=== PATIENT | female | born 1945 | race Caucasian/White ===

== ENCOUNTER 2017-11-21 22:01 | Emergency (ER) | payer MEDICARE ==
[~2017-11-21] VITALS: Ht 165.1 cm; Wt 96.2 kg
[2017-11-21 22:42] LABS: BASO # 0.1 x10^3/uL (0.0-0.2); BASO % 2 % (0-3); EOS # 0.1 x10^3/uL (0.0-0.7); EOS % 1 % (0-3); HEMATOCRIT 49.3 % (36.0-47.0); LYMPH # 2.9 x10^3/uL (1.0-4.8); LYMPH % 30 % (24-48); MEAN CORPUSCULAR HEMOGLOBIN 33 pg (25-35); MEAN CORPUSCULAR HGB CONC 34 g/dL (31-37); MEAN CORPUSCULAR VOLUME 95 fL (79-100); MONO # 0.8 x10^3/uL (0.0-1.1); MONO % 8 % (0-9); NEUT # 5.8 x10^3uL (1.8-7.7); NEUT % 60 % (31-73); PLATELET COUNT 260 x10^3/uL (140-400); RED BLOOD COUNT 5.19 x10^6/uL (3.50-5.40); RED CELL DISTRIBUTION WIDTH 13.9 % (11.5-14.5); WHITE BLOOD COUNT 9.7 x10^3/uL (4.0-11.0)
[2017-11-21] MEDS ORDERED: PROCHLORPERAZINE 10 MG/2 ML VIAL. IV ONE (22:45)
[2017-11-21] MEDS ORDERED: IV NORMAL SALINE 1,000ML 1,000 ML IV SCH (22:45)
--- NOTE | 2017-11-21 22:48 | EKG ---
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
[2017-11-21 23:04] LABS: ALBUMIN 3.5 g/dL (3.4-5.0); CALCIUM 8.8 mg/dL (8.5-10.1); CREATININE 0.9 mg/dL (0.6-1.0); GFR 61.9; TOTAL BILIRUBIN 0.4 mg/dL (0.2-1.0); TOTAL PROTEIN 7.1 g/dL (6.4-8.2)
[2017-11-21 23:05] LABS: POTASSIUM 4.3 mmol/L (3.5-5.1)
--- NOTE | 2017-11-21 23:10 | RAD ---
EXAM: Two view abdomen with one view chest HISTORY: Abdominal and left flank pain. COMPARISON: May 16, 2012. FINDINGS: A frontal view of the chest and supine/upright views of the abdomen are obtained. Hyperinflation suggests chronic obstructive pulmonary disease. There are no confluent infiltrates. There is no pneumothorax or pleural effusion. The heart is mildly enlarged. A retrocardiac opacity indicates a moderate to large hiatal hernia. There is no pneumoperitoneum. There are no distended small bowel loops or significant air-fluid levels. There is gas distally. Cholecystectomy clips are noted. There are moderate degenerative changes of the lumbar spine with a mild dextroscoliosis. There are no clear renal or ureteral calculi by radiographs. IMPRESSION: 1. Hyperinflation suggests chronic obstructive pulmonary disease. No confluent infiltrates. 2. Mild cardiomegaly. 3. Moderate to large hiatal hernia. 4. No evidence of obstruction. Electronically signed by: Madalyn Bucio MD (11/21/2017 11:06 PM) [facility]
--- NOTE | 2017-11-21 23:16 | PHYS DOC ---
Past History Past Medical History: Asthma, Diverticulitis Past Surgical History: Appendectomy, Cholecystectomy Alcohol Use: None Drug Use: None Adult General Chief Complaint Chief Complaint: FLANK PAIN HPI HPI Patient is a 71 year old female who presents with complaint of left-sided abdominal pain. Patient states she started having pain yesterday but states that it got much more severe this evening. The patient states she is not quite had pain in the similar though she does state that she had a bout of diverticulitis in became very sick from that requiring hospitalization at [facility] for treatment. The patient currently rates her pain as 10 out of 10 and states that the pain is most severe in the left upper quadrant and radiates towards the left side of her back. The patient has had associated nausea. Denies fever, diarrhea or constipation. Patient has not taken any medication for her symptoms. Patient states pain worsens with movement. Review of Systems Review of Systems Constitutional: Denies fever or chills [] Eyes: Denies change in visual acuity, redness, or eye pain [] HENT: Denies nasal congestion or sore throat [] Respiratory: Denies cough or shortness of breath [] Cardiovascular: Denies chest pain or edema[] GI: Abdominal pain, nausea, denies vomiting, bloody stools or diarrhea [] : Denies dysuria or hematuria [] Musculoskeletal: Denies back pain or joint pain [] Integument: Denies rash or skin lesions [] Neurologic: Denies headache, focal weakness or sensory changes [] All other systems were reviewed and found to be within normal limits, except as documented in this note. Current Medications Current Medications Current Medications Medications (Trade) Dose Ordered Sig/Janett Start Time Stop Time Status Last Admin Dose Admin Fentanyl Citrate (Fentanyl 2ml Vial) 50 mcg PRN Q15MIN PRN 11/21/17 22:45 11/22/17 22:44 Prochlorperazine Edisylate (Compazine) 5 mg 1X ONCE 11/21/17 22:45 11/21/17 22:46 DC Sodium Chloride 1,000 ml @ 1,000 mls/hr Q1H 11/21/17 22:45 11/21/17 23:44 Allergies Allergies Allergies Coded Allergies Type Severity Reaction Last Updated Verified propoxyphene Allergy Severe Unknown 11/21/17 Yes Penicillins Allergy Intermediate Unknown 11/21/17 Yes codeine Allergy Intermediate 11/21/17 Yes tetanus and diphtheria toxoids Allergy Intermediate Unknown 11/21/17 Yes Uncoded Allergies Type Severity Reaction Last Updated Verified TB TESTING Allergy Intermediate Unknown 11/21/17 Physical Exam Physical Exam Constitutional: Alert, afebrile, appears in moderate to severe discomfort. [] HENT: Normocephalic, atraumatic, bilateral external ears normal, oropharynx moist, no oral exudates, nose normal. [] Eyes: PERRLA, EOMI, conjunctiva normal, no discharge. [] Neck: Normal range of motion, no tenderness, supple, no stridor. [] Cardiovascular:Heart rate regular rhythm, no murmur [] Lungs & Thorax: Mild moderately restricted air movement bilaterally, rhonchi bilaterally, no chest wall tenderness[] Abdomen: Bowel sounds normal, soft, epigastric and left upper quadrant tenderness to palpation with guarding, no rebound tenderness, no masses, no pulsatile masses. [] Skin: Warm, dry, no erythema, no rash. [] Back: No tenderness, no CVA tenderness. [] Extremities: No tenderness, no cyanosis, no clubbing, ROM intact, no edema. [] Neurologic: Alert and oriented X 3, normal motor function, normal sensory function, no focal deficits noted. [] Current Patient Data Vital Signs Vital Signs Date Time Temp Pulse Resp B/P (MAP) Pulse Ox O2 Delivery O2 Flow Rate FiO2 11/21/17 22:01 98.1 65 18 95 Room Air Lab Results Laboratory Tests Test 11/21/17 22:28 White Blood Count 9.7 x10^3/uL (4.0-11.0) Red Blood Count 5.19 x10^6/uL (3.50-5.40) Hemoglobin 17.0 g/dL (12.0-15.5) H Hematocrit 49.3 % (36.0-47.0) H Mean Corpuscular Volume 95 fL (79-100) Mean Corpuscular Hemoglobin 33 pg (25-35) Mean Corpuscular Hemoglobin Concent 34 g/dL (31-37) Red Cell Distribution Width 13.9 % (11.5-14.5) Platelet Count 260 x10^3/uL (140-400) Neutrophils (%) (Auto) 60 % (31-73) Lymphocytes (%) (Auto) 30 % (24-48) Monocytes (%) (Auto) 8 % (0-9) Eosinophils (%) (Auto) 1 % (0-3) Basophils (%) (Auto) 2 % (0-3) Neutrophils # (Auto) 5.8 x10^3uL (1.8-7.7) Lymphocytes # (Auto) 2.9 x10^3/uL (1.0-4.8) Monocytes # (Auto) 0.8 x10^3/uL (0.0-1.1) Eosinophils # (Auto) 0.1 x10^3/uL (0.0-0.7) Basophils # (Auto) 0.1 x10^3/uL (0.0-0.2) Sodium Level 138 mmol/L (136-145) Potassium Level 4.3 mmol/L (3.5-5.1) Chloride Level 99 mmol/L (98-107) Carbon Dioxide Level 31 mmol/L (21-32) Anion Gap 8 (6-14) Blood Urea Nitrogen 9 mg/dL (7-20) Creatinine 0.9 mg/dL (0.6-1.0) Estimated GFR (Cockcroft-Gault) 61.9 BUN/Creatinine Ratio 10 (6-20) Glucose Level 124 mg/dL (70-99) H Calcium Level 8.8 mg/dL (8.5-10.1) Total Bilirubin 0.4 mg/dL (0.2-1.0) Aspartate Amino Transferase (AST) 18 U/L (15-37) Alanine Aminotransferase (ALT) 21 U/L (14-59) Alkaline Phosphatase 105 U/L (46-116) Creatine Kinase 51 U/L (26-192) Creatine Kinase MB (Mass) 0.7 ng/mL (0.0-3.6) Creatine Kinase MB Relative Index 1.4 % (0-4) Troponin I Quantitative < 0.017 ng/mL (0-0.055) Total Protein 7.1 g/dL (6.4-8.2) Albumin 3.5 g/dL (3.4-5.0) Albumin/Globulin Ratio 1.0 (1.0-1.7) Lipase 70 U/L (73-393) L EKG EKG Interpreted by me: Heart rate 88, sinus rhythm, left bundle branch block, no acute ST/T-wave abnormalities present[] Radiology/Procedures Radiology/Procedures [address] [address] IMAGING REPORT Signed PATIENT: AINSLEY VELASCO ACCOUNT: [id number] : 1945 LOCATION: ER AGE: 71 SEX: F EXAM STATUS: REG ER ORD. PHYSICIAN: MALI SMITH MD REASON: abdominal pain PROCEDURE: ACUTE ABDOMEN SERIES EXAM: Two view abdomen with one view chest HISTORY: Abdominal and left flank pain. COMPARISON: May 16, 2012. FINDINGS: A frontal view of the chest and supine/upright views of the abdomen are obtained. Hyperinflation suggests chronic obstructive pulmonary disease. There are no confluent infiltrates. There is no pneumothorax or pleural effusion. The heart is mildly enlarged. A retrocardiac opacity indicates a moderate to large hiatal hernia. There is no pneumoperitoneum. There are no distended small bowel loops or significant air-fluid levels. There is gas distally. Cholecystectomy clips are noted. There are moderate degenerative changes of the lumbar spine with a mild dextroscoliosis. There are no clear renal or ureteral calculi by radiographs. IMPRESSION: 1. Hyperinflation suggests chronic obstructive pulmonary disease. No confluent infiltrates. 2. Mild cardiomegaly. 3. Moderate to large hiatal hernia. 4. No evidence of obstruction. Electronically signed by: Madalyn Bucio MD (11/21/2017 11:06 PM) [facility] DICTATED AND SIGNED BY: HOWARD BUCIO MD DATE: 11/21/172303 CC: CHARLOTTE ZAMORA MD; MALI SMITH MD ~ [address] [address] IMAGING REPORT Signed PATIENT: AINSLEY VELASCO ACCOUNT: [id number] : 1945 LOCATION: ER AGE: 71 SEX: F EXAM STATUS: REG ER ORD. PHYSICIAN: MALI SMITH MD REASON: abdominal pain PROCEDURE: CT ABD PELV W/ IV CONTRST ONLY Indication:Abdominal pain, left flank pain radiating to back. Onset yesterday. Hx cholecystectomy, partial hysterectomy, hiatal hernia. Pt states she thinks they took out her appendix with her gallbladder. Pt denies injury to abdomen TECHNIQUE: CT abdomen and pelvis with IV contrast with multiplanar reformats. COMPARISON: 07/31/2012 FINDINGS: Heart is normal in size. No pericardial or pleural effusion. Visualized lung bases are clear. Small sliding hiatal hernia. 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 Status post cholecystectomy. Spleen is unenlarged. Adrenal glands demonstrate no nodularity. No nephrolithiasis or hydronephrosis. No retroperitoneal or pelvic adenopathy. Mild diffuse atherosclerotic ossification of the infrarenal aorta. Appendix is not visualized. No bowel obstruction. Diffuse colonic diverticulosis. No enlarged pelvic or retroperitoneal adenopathy. Urinary bladder is within normal limits. Uterus is surgically absent. No solid adnexal lesions. Bilateral ovaries are visualized. No suspicious bony lesion. IMPRESSION: 1. No acute findings to explain patient's symptoms. 2. Diffuse colonic diverticulosis without diverticulitis. Electronically signed by: Dimitry Gibbs DO (11/22/2017 12:10 AM) [facility] DICTATED AND SIGNED BY: DIMITRY GIBBS DO DATE: 11/22/17 0004 CC: CHARLOTTE ZAMORA MD; MALI SMITH MD ~ [] Course & Med Decision Making Course & Med Decision Making Pertinent Labs and Imaging studies reviewed. (See chart for details) Patient was given IV fentanyl, Compazine, GI cocktail, and IV fluids. Lab work and radiographic imaging showed no conclusive evidence for acute pathology relating to the patient's symptoms. On reexamination, the patient states that her pain has improved and she is feeling better at this time. Patient states that she would be comfortable going home at this time and will pursue outpatient follow-up with her primary doctor in the next 1-2 days for reevaluation. I advised the patient return to emergency department for any worsening symptoms. Patient was understanding and agreement with treatment plan. Dragon Disclaimer Dragon Disclaimer This electronic medical record was generated, in whole or in part, using a voice recognition dictation system. Departure Departure: Impression: Primary Impression: Abdominal pain Disposition: HOME, SELF-CARE Condition: IMPROVED Referrals: CHARLOTTE ZAMORA MD (PCP) Patient Instructions: Abdominal Pain Additional Instructions: Follow-up with your primary doctor in the next 1-2 days for reevaluation. Return to the emergency department for any worsening symptoms. Scripts Hydrocodone Bit/Acetaminophen (NORCO 5-325 TABLET) 1 Each Tablet 1-2 TAB PO Q4-6HRS, #20 TAB Prov: MALI SMITH MD 11/22/17 Famotidine (PEPCID) 20 Mg Tablet 1 TAB PO BID, #30 TAB 0 Refills Prov: MALI SMITH MD 11/22/17 Problem Qualifiers Primary Impression: Abdominal pain Abdominal location: left upper quadrant Qualified Codes: R10.12 - Left upper quadrant pain MALI SMITH MD Nov 21, 2017 23:16
[2017-11-21] MEDS ORDERED: IOHEXOL 300 MG/ML 75 ML VIAL. IV ONE (23:45)
[2017-11-21] MEDS ORDERED: CONTRAST GIVEN MC PRN (23:45)
[2017-11-21 23:52] LABS: BACTERIA,URINE 0 /HPF (0-FEW); BILIRUBIN,URINE NEG (NEG); CLARITY,URINE CLEAR; COLOR,URINE YELLOW; GLUCOSE,URINE NEG (NEG); NITRITE,URINE NEG (NEG); RBC,URINE 0 /HPF (0-2); SQUAMOUS EPITHELIAL CELL,UR FEW /LPF; UROBILINOGEN,URINE 0.2 mg/dL (0.2 mg/dL)
--- NOTE | 2017-11-22 00:14 | RAD ---
Indication:Abdominal pain, left flank pain radiating to back. Onset yesterday. Hx cholecystectomy, partial hysterectomy, hiatal hernia. Pt states she thinks they took out her appendix with her gallbladder. Pt denies injury to abdomen TECHNIQUE: CT abdomen and pelvis with IV contrast with multiplanar reformats. COMPARISON: 07/31/2012 FINDINGS: Heart is normal in size. No pericardial or pleural effusion. Visualized lung bases are clear. Small sliding hiatal hernia. 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 Status post cholecystectomy. Spleen is unenlarged. Adrenal glands demonstrate no nodularity. No nephrolithiasis or hydronephrosis. No retroperitoneal or pelvic adenopathy. Mild diffuse atherosclerotic ossification of the infrarenal aorta. Appendix is not visualized. No bowel obstruction. Diffuse colonic diverticulosis. No enlarged pelvic or retroperitoneal adenopathy. Urinary bladder is within normal limits. Uterus is surgically absent. No solid adnexal lesions. Bilateral ovaries are visualized. No suspicious bony lesion. IMPRESSION: 1. No acute findings to explain patient's symptoms. 2. Diffuse colonic diverticulosis without diverticulitis. Electronically signed by: Dimitry Gibbs DO (11/22/2017 12:10 AM) [facility]
[2017-11-22] MEDS ORDERED: IPRATRPIUM/ALBUTEROL 0.5/2.5MG 3 ML NEBU. NEB ONE (00:15)
[2017-11-22] MEDS ORDERED: LIDO:MAALOX 1:1 20 ML SINGLE DOSE. PO ONE (00:30)
[2017-11-22] MEDS ORDERED: HYDR-971 PO (00:55)
[2017-11-22] MEDS ORDERED: FAMO-63 PO (00:55)
[2017-11-22 01:25] VITALS: BP 152/80
[2017-11-22] MEDS ORDERED: HYDROcodone/APAP 7.5/325MG 1 TAB TABLET PO ONE (01:30)
== END 2017-11-22 01:25 | disposition home or self-care (01) ==
LOC: ER 22:01
DX: R10.12 Left upper quadrant pain (principal); R10.13 Epigastric pain; R11.0 Nausea; J45.909 Unspecified asthma, uncomplicated; Z90.49 Acquired absence of other specified parts of digestive tract; Z88.5 Allergy status to narcotic agent; Z88.7 Allergy status to serum and vaccine; Z88.0 Allergy status to penicillin; Z88.8 Allergy status to other drugs, medicaments and biological substances
CPT/HCPCS: 36415; 74022; 74177; 80053; 81001; 82553; 83690; 84484; 85025; 87086; 93005; 94640; 96374; 96375; 96376; 99285; J0780; J3010; J7620; Q9967; J7030

== ENCOUNTER 2020-06-10 16:16 | Emergency (ER) | payer MEDICARE, OTHER ==
[~2020-06-10] VITALS: Ht 165.1 cm; Wt 97.0 kg
[~2020-06-10 16:16] MED LIST: FAMO-63 PO; HYDR-3165 PO
[2020-06-10] MEDS ORDERED: ASPIRIN CHEWABLE 81 MG TABLET. PO ONE (16:30)
[2020-06-10 17:01] LABS: CALCIUM 9.6 mg/dL (8.5-10.1); CREATININE 0.9 mg/dL (0.6-1.0); GFR 61.4; POTASSIUM 3.9 mmol/L (3.5-5.1)
--- NOTE | 2020-06-10 17:02 | EKG ---
[facility] ED [facility] [place] [id number] Test Date: 2020-06-10 Test Time: 16:49:07 Pat Name: AINSLEY VELASCO Department: Room: Gender: F Extruder Operator Multiple: : 1945 Requested By: JIM OWUSU Order Number: [id number] Reading MD: Measurements Intervals [place] Rate: 90 P: 28 OR: 156 QRS: -26 QRSD: 136 T: 121 QT: 364 QTc: 449 Interpretive Statements SINUS RHYTHM LEFT ATRIAL ABNORMALITY LEFTWARD AXIS LEFT BUNDLE BRANCH BLOCK ABNORMAL ECG RI6.02 No previous ECG available for comparison
[2020-06-10 17:13] LABS: ALBUMIN 3.5 g/dL (3.4-5.0); ALBUMIN/GLOBULIN RATIO 0.8 (1.0-1.7); TOTAL BILIRUBIN 0.6 mg/dL (0.2-1.0); TOTAL PROTEIN 7.7 g/dL (6.4-8.2)
--- NOTE | 2020-06-10 17:17 | PHYS DOC ---
Past History Past Medical History: Arthritis, Asthma, COPD, Hyperthyroid, Other Additional Past Medical Histor: hiatal hernia Past Surgical History: Appendectomy, Cholecystectomy, Hysterectomy Additional Smoking Information: 1PPD X 47 years Alcohol Use: None Drug Use: None Adult General Chief Complaint Chief Complaint: SHORTNESS OF BREATH [facility] HPI Patient is a 74-year-old female presenting for shortness of breath. States this is been going on since "April 2019 ... I feel like I had COVID-19 none and I just have not felt the same". States her breathing his acutely worsened in the past x1 week. Reports shortness of breath, increased production of sputum and change in typical sputum purulence. She is a longtime smoker and has history of COPD, only utilizes rescue inhaler as needed for shortness of breath which she has been requiring increased use for past month. Symptoms reported are constant shortness of breath, denies any focal chest pain but admits just overall pressure. No prior cardiac work-up ever performed. She has good access to primary care physician, she discussed case with their office and was advised to seek immediate medical attention at our ER given symptoms. She has been afebrile, no known COVID-19 exposure, no recent travel or sick contacts, no abdominal pain, no UTI-like symptoms. Review of Systems Review of Systems Fourteen body systems of review of systems have been reviewed. See HPI for pertinent positives and negative responses, other hines all other systems are negative, non-pertinent or non-contributory Current Medications Current Medications Current Medications Medications (Trade) Dose Ordered Sig/Janett Start Time Stop Time Status Last Admin Dose Admin Aspirin (Aspirin Chewable) 324 mg 1X ONCE 06/10/20 16:30 06/10/20 16:34 DC 06/10/20 17:05 324 MG Allergies Allergies Allergies Coded Allergies Type Severity Reaction Last Updated Verified propoxyphene Allergy Severe Unknown 06/10/20 Yes Penicillins Allergy Intermediate Unknown 06/10/20 Yes codeine Allergy Intermediate 06/10/20 Yes tetanus and diphtheria toxoids Allergy Intermediate Unknown 06/10/20 Yes Uncoded Allergies Type Severity Reaction Last Updated Verified TB TESTING Allergy Intermediate Unknown 11/21/17 Physical Exam Physical Exam Constitutional: Pt is oriented to person, place, and time. Pt appears well-developed and well- nourished. HEENT: Head: Normocephalic and atraumatic. External ears unremarkable Conjunctivae and EOM are normal. Pupils are equal, round, and reactive to light. Oropharynx is clear and moist. No hematomas or lacerations or abrasions to face or scalp OP clear, no blood, no malocclusion, dentition intact Nares clear, no nasal septal hematoma Midface stable Neck: C-spine midline nontender, no step-offs Cardiovascular: Normal rate, regular rhythm and normal heart sounds. Pulmonary/Chest: Effort normal and breath sounds normal. No respiratory distress. Wheezes present, more pronounced on exhalation Abdominal: Soft. Bowel sounds are normal. Pt exhibits no distension. There is no tenderness. Musculoskeletal: No bony tenderness to extremities, no deformities, full ROM extremities Chest wall stable Pelvis stable and non-tender No vertebral TTP and spine without stepoffs Neurological: Pt is alert and oriented to person, place, and time. Moving all extremities willfully, able to wiggle all fingers and toes Alert and oriented x 3 Sensation grossly intact Skin: Skin is warm and dry. No abrasions, no lacerations Psychiatric: Anxious affect and mood Current Patient Data Vital Signs Vital Signs Date Time Temp Pulse Resp B/P (MAP) Pulse Ox O2 Delivery O2 Flow Rate FiO2 06/10/20 16:26 98.2 95 26 124/77 (93) 93 Lab Results Laboratory Tests Test 06/10/20 16:30 Sodium Level 138 mmol/L (136-145) Potassium Level 3.9 mmol/L (3.5-5.1) Chloride Level 102 mmol/L (98-107) Carbon Dioxide Level 33 mmol/L (21-32) H Anion Gap 3 (6-14) L Blood Urea Nitrogen 11 mg/dL (7-20) Creatinine 0.9 mg/dL (0.6-1.0) Estimated GFR (Cockcroft-Gault) 61.4 BUN/Creatinine Ratio 12 (6-20) Glucose Level 78 mg/dL (70-99) Calcium Level 9.6 mg/dL (8.5-10.1) Total Bilirubin 0.6 mg/dL (0.2-1.0) Aspartate Amino Transferase (AST) 13 U/L (15-37) L Alanine Aminotransferase (ALT) 20 U/L (14-59) Alkaline Phosphatase 87 U/L (46-116) Troponin I Quantitative 0.031 ng/mL (0-0.055) OP-Nhl-P-Type Natriuretic Peptide 858 pg/mL (0-124) H Total Protein 7.7 g/dL (6.4-8.2) Albumin 3.5 g/dL (3.4-5.0) Albumin/Globulin Ratio 0.8 (1.0-1.7) L EKG EKG EKG ordered and interpreted by myself at 1656 hrs. as sinus rhythm at 90 bpm, QRS prolonged at 136 otherwise unremarkable intervals, left axis deviation, left bundle branch block present with negative Sgarbossa's criteria, no STEMI Radiology/Procedures Radiology/Procedures AP chest. HISTORY: Chest pain, history COPD AP view was taken of the chest. The heart is mildly prominent. There is no effusion. Patient is lordotically positioned. There are no definite infiltrates although the lung bases are not optimally evaluated. IMPRESSION: 1. No acute infiltrates. Electronically signed by: Ronnie Olson MD (06/10/2020 5:20 PM) [place] Heart Score HEART Score for Chest Pain: HEART Score for Chest Pain Response (Comments) Value History Slighlty/Non-Suspicious 0 ECG Nonspecific Repolarizatio 1 Age > 65 2 Risk Factors >3 Risk Factors or Hx CAD 2 Troponin < Normal Limit 0 Total 5 Risk Factors: Risk Factors: DM, Current or recent (<one month) smoker, HTN, HLP, family history of CAD, obesity. Risk Scores: Risk Factors: DM, Current or recent (<one month) smoker, HTN, HLP, family history of CAD, obesity. Course & Med Decision Making Course & Med Decision Making Pertinent Labs and Imaging studies reviewed. (See chart for details) Discussed with the patient all findings and diagnostic testing. I discussed most likely diagnosis of acute exacerbation of COPD. Patient has high risk for cardiac disease given numerous comorbidities, I discussed utility of heart score, I did recommend that she be admitted for cardiac observation but patient deferred this. She reports having good access to PCP and would rather have outpatient provocative cardiac testing performed instead. As such, patient was given prednisone and doxycycline for acute exacerbation while in ER and tolerated this well. I stressed need for close outpatient follow-up to review today's ER visit. I disclosed this might be an acute presentation of more concerning pathology and as such, she should report back if any recurrence of symptoms arise. Strict return precautions were also discussed at length with good understanding by patient. Patient voiced understanding and agreement with the plan. Patient knows to come back for repeat evaluation if concerning signs or symptoms present prior to outpatient follow-up. Hemodynamically stable, ambulatory and well-appearing at time of disposition. Dragon Disclaimer Dragon Disclaimer This electronic medical record was generated, in whole or in part, using a voice recognition dictation system. Departure Departure: Impression: Primary Impression: Acute exacerbation of chronic obstructive pulmonary disease (COPD) Additional Impression: Atypical chest pain Disposition: DC HOME SELF CARE/HOMELESS Condition: STABLE Referrals: LAURYN MCCANN (PCP) Patient Instructions: Chest Pain (Nonspecific), Chronic Obstructive Pulmonary Disease Exacerbation Additional Instructions: You were seen for trouble breathing which is most likely a result of a COPD exacerbation. Please continue your current regimen for symptom control and if prescribed any medications during your ED visit today, take them as prescribed until completion or your primary doctor changes your medications. 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 I did disclose the possibility of this being cardiac in nature and recommended observation, you declined. Because of this, I would also discuss with your primary care doctor need for outpatient provocative cardiac testing that might include stress test and/or echocardiogram. In addition, given the current pandemic I cannot definitively exclude COVID-19 infection as source of your presenting symptoms. If your test does come back positive you need to quarantine yourself for 10 days until symptom-free. You should make sure to drink plenty of fluids and get plenty of rest. Return to the ED if you develop worsening cough, shortness of breath, fever > 101, chest pain, or any other new or concerning symptoms. Scripts Doxycycline Hyclate (DOXYCYCLINE HYCLATE) 100 Mg Tablet 1 TAB PO BID for aecopd, #14 TAB Prov: JIM OWUSU DO 06/10/20 Prednisone (PREDNISONE) 20 Mg Tablet 40 MG PO DAILY for bronchitis for 5 Days, #10 TAB Prov: JIM OWUSU DO 06/10/20 Problem Qualifiers JIM OWUSU DO Jun 10, 2020 17:17
--- NOTE | 2020-06-10 17:22 | RAD ---
AP chest. HISTORY: Chest pain, history COPD AP view was taken of the chest. The heart is mildly prominent. There is no effusion. Patient is lordo tically positioned. There are no definite infiltrates although the lung bases are not optimally evalu ated. IMPRESSION: 1. No acute infiltrates. Electronically signed by: Ronnie Olson MD (06/10/2020 5:20 PM) [facility]
[2020-06-10 17:23] LABS: BASO # 0.1 x10^3/uL (0.0-0.2); BASO % 1 % (0-3); EOS # 0.1 x10^3/uL (0.0-0.7); EOS % 1 % (0-3); HEMATOCRIT 51.7 % (36.0-47.0); HEMOGLOBIN 17.2 g/dL (12.0-15.5); LYMPH # 2.2 x10^3/uL (1.0-4.8); LYMPH % 30 % (24-48); MEAN CORPUSCULAR HEMOGLOBIN 32 pg (25-35); MEAN CORPUSCULAR HGB CONC 33 g/dL (31-37); MEAN CORPUSCULAR VOLUME 97 fL (79-100); MONO # 0.8 x10^3/uL (0.0-1.1); MONO % 11 % (0-9); NEUT # 4.3 x10^3uL (1.8-7.7); NEUT % 57 % (31-73); PLATELET COUNT 238 x10^3/uL (140-400); RED BLOOD COUNT 5.35 x10^6/uL (3.50-5.40); RED CELL DISTRIBUTION WIDTH 14.5 % (11.5-14.5); WHITE BLOOD COUNT 7.5 x10^3/uL (4.0-11.0)
[2020-06-10] MEDS ORDERED: predniSONE 20 MG TABLET PO ONE (17:30)
[2020-06-10] MEDS ORDERED: DOXYCYCLINE HYCLATE 100 MG TABLET PO ONE (17:30)
[2020-06-10 18:05] VITALS: BP 125/81
[2020-06-10] MEDS ORDERED: DOXY100T PO (18:14)
[2020-06-10] MEDS ORDERED: PRED20TA PO (18:14)
== END 2020-06-10 18:30 | disposition home or self-care (01) ==
LOC: ER 16:16
DX: J44.1 Chronic obstructive pulmonary disease with (acute) exacerbation (principal); R07.89 Other chest pain; Z20.828 Contact with and (suspected) exposure to other viral communicable diseases
CPT/HCPCS: 36415; 71045; 80053; 83880; 84484; 85025; 93005; 99285; C9803; J7512; U0003

== ENCOUNTER → 2020-07-31 | Outpatient (CLI) | payer MEDICARE, OTHER ==
[~2020-07-31] MED LIST changes: +DOXY100T PO; +PRED20TA PO
[2020-07-31 12:21] LABS: BASO % 1 % (0-3); EOS # 0.1 x10^3/uL (0.0-0.7); EOS % 1 % (0-3); HEMATOCRIT 52.5 % (36.0-47.0); HEMOGLOBIN 17.3 g/dL (12.0-15.5); LYMPH # 1.9 x10^3/uL (1.0-4.8); LYMPH % 28 % (24-48); MEAN CORPUSCULAR HEMOGLOBIN 32 pg (25-35); MEAN CORPUSCULAR HGB CONC 33 g/dL (31-37); MEAN CORPUSCULAR VOLUME 97 fL (79-100); MONO # 0.7 x10^3/uL (0.0-1.1); MONO % 10 % (0-9); NEUT # 4.1 x10^3uL (1.8-7.7); NEUT % 60 % (31-73); PLATELET COUNT 243 x10^3/uL (140-400); RED CELL DISTRIBUTION WIDTH 14.2 % (11.5-14.5); WHITE BLOOD COUNT 6.8 x10^3/uL (4.0-11.0)
[2020-07-31 12:36] LABS: CREATININE 0.7 mg/dL (0.6-1.0); POTASSIUM 4.5 mmol/L (3.5-5.1)
== END ==
LOC: LAB 08:44
PROVIDERS: ATTEND Internal Medicine
DX: Z01.812 Encounter for preprocedural laboratory examination (principal); I50.9 Heart failure, unspecified; J44.1 Chronic obstructive pulmonary disease with (acute) exacerbation; Z90.49 Acquired absence of other specified parts of digestive tract; Z88.0 Allergy status to penicillin
CPT/HCPCS: 36415; 80048; 85025; 85610

== ENCOUNTER → 2020-07-31 | Outpatient (CLI) | payer MEDICARE, OTHER | LOC: LAB 09:15 | PROVIDERS: ATTEND Internal Medicine | DX: Z01.812 Encounter for preprocedural laboratory examination (principal); Z20.822 Contact with and (suspected) exposure to COVID-19 | CPT/HCPCS: U0003 ==

== ENCOUNTER 2021-03-31 19:11 | Emergency (ER) | payer MEDICARE, OTHER ==
[~2021-03-31] VITALS: Ht 165.1 cm; Wt 95.5 kg
[2021-03-31] MEDS ORDERED: IV NORMAL SALINE 1,000ML 1,000 ML IV SCH (19:45)
[2021-03-31] MEDS ORDERED: ONDANSETRON PF 4 MG/2 ML VIAL. IVP ONE (20:00)
[2021-03-31 20:03] LABS: BASO # 0.1 x10^3/uL (0.0-0.2); BASO % 1 % (0-3); EOS # 0.4 x10^3/uL (0.0-0.7); EOS % 5 % (0-3); HEMATOCRIT 47.9 % (36.0-47.0); HEMOGLOBIN 16.1 g/dL (12.0-15.5); LYMPH # 2.2 x10^3/uL (1.0-4.8); LYMPH % 25 % (24-48); MEAN CORPUSCULAR HEMOGLOBIN 33 pg (25-35); MEAN CORPUSCULAR HGB CONC 34 g/dL (31-37); MEAN CORPUSCULAR VOLUME 98 fL (79-100); MONO # 0.7 x10^3/uL (0.0-1.1); MONO % 8 % (0-9); NEUT # 5.4 x10^3uL (1.8-7.7); NEUT % 61 % (31-73); PLATELET COUNT 248 x10^3/uL (140-400); RED BLOOD COUNT 4.89 x10^6/uL (3.50-5.40); RED CELL DISTRIBUTION WIDTH 14.6 % (11.5-14.5); WHITE BLOOD COUNT 8.8 x10^3/uL (4.0-11.0)
--- NOTE | 2021-03-31 20:09 | PHYS DOC ---
Past History Past Medical History: Arthritis, Asthma, COPD, Hyperthyroid, Other Additional Past Medical Histor: hiatal hernia (CLARKE CHANG APRN) Past Surgical History: Appendectomy, Cholecystectomy, Hysterectomy (CLARKE CHANG APRN) Alcohol Use: None Drug Use: None (CLARKE CHANG APRN) General Adult EDM: Chief Complaint: FLANK PAIN HPI: HPI: Patient is a 75 old female being seen in the ER for week history of body aches. She states 2 days ago she started experiencing right-sided flank pain that radiates to her right lower abdomen. Pain is worse with movement. She is also reporting nausea and urinary frequency. She rates her pain 10 out of 10. She has taken Flexeril and ibuprofen today for her pain. She denies fevers, dysuria, hematuria, urinary urgency, vomiting, diarrhea. Patient is currently wearing a Holter monitor. (CLARKE CHANG APRN) Review of Systems: Review of Systems: 14 body systems of the review of systems have been reviewed. See HPI for pertinent positive and negative responses, otherwise all other systems are negative, nonpertinent or noncontributory (CLARKE CHANG APRN) Current Medications: Current Meds: Current Medications Medications (Trade) Dose Ordered Sig/Janett Start Time Stop Time Status Last Admin Dose Admin Fentanyl Citrate (Fentanyl 2ml Vial) 50 mcg 1X ONCE 03/31/21 19:45 03/31/21 19:46 DC 03/31/21 20:00 50 MCG Ondansetron HCl (Zofran) 4 mg 1X ONCE 03/31/21 20:00 03/31/21 20:03 DC Sodium Chloride 1,000 ml @ 1,000 mls/hr Q1H 03/31/21 19:45 03/31/21 20:44 03/31/21 20:00 1,000 MLS/HR (CLARKE CHANG APRN) Allergies: Allergies: Allergies Coded Allergies Type Severity Reaction Last Updated Verified propoxyphene Allergy Severe Unknown 06/10/20 Yes Penicillins Allergy Intermediate Unknown 06/10/20 Yes codeine Allergy Intermediate 06/10/20 Yes tetanus and diphtheria toxoids Allergy Intermediate Unknown 06/10/20 Yes Uncoded Allergies Type Severity Reaction Last Updated Verified TB TESTING Allergy Intermediate Unknown 11/21/17 (CLARKE CHANG APRN) Physical Exam: PE: Constitutional: Well developed, well nourished, no acute distress, non-toxic appearance. [] HENT: Normocephalic, atraumatic, bilateral external ears normal, oropharynx moist, no oral exudates, nose normal. [] Eyes: PERRL, EOMI, conjunctiva normal, no discharge. [] Neck: Normal range of motion, no stridor Cardiovascular:Heart rate regular rhythm, no murmur [] Lungs & Thorax: Bilateral breath sounds clear to auscultation [] Abdomen: Bowel sounds normal, soft, no tenderness, no masses, no pulsatile masses. [] Skin: Warm, dry, no erythema, no rash. [] Back: No tenderness, right-sided CVA tenderness. [] Extremities: No tenderness, no cyanosis, no clubbing, ROM intact, no edema. [] Neurologic: Alert and oriented X 3, normal motor function, normal sensory function, no focal deficits noted. [] Psychologic: Affect normal, judgement normal, mood normal. [] (CLARKE CHANG APRN) Current Patient Data: Labs: Laboratory Tests Test 03/31/21 19:39 White Blood Count 8.8 x10^3/uL Red Blood Count 4.89 x10^6/uL Hemoglobin 16.1 g/dL Hematocrit 47.9 % Mean Corpuscular Volume 98 fL Mean Corpuscular Hemoglobin 33 pg Mean Corpuscular Hemoglobin Concent 34 g/dL Red Cell Distribution Width 14.6 % Platelet Count 248 x10^3/uL Neutrophils (%) (Auto) 61 % Lymphocytes (%) (Auto) 25 % Monocytes (%) (Auto) 8 % Eosinophils (%) (Auto) 5 % Basophils (%) (Auto) 1 % Neutrophils # (Auto) 5.4 x10^3uL Lymphocytes # (Auto) 2.2 x10^3/uL Monocytes # (Auto) 0.7 x10^3/uL Eosinophils # (Auto) 0.4 x10^3/uL Basophils # (Auto) 0.1 x10^3/uL Urine Collection Type Unknown Urine Color Yellow Urine Clarity Clear Urine pH 5.5 Urine Specific [place] >=1.030 Urine Protein Neg Urine Glucose (UA) Neg mg/dL Urine Ketones (Stick) Trace mg/dL Urine Blood Neg Urine Nitrite Neg Urine Bilirubin Small Urine Urobilinogen Dipstick 1.0 mg/dL Urine Leukocyte Esterase Neg Urine RBC 0 /HPF Urine WBC 0 /HPF Urine Squamous Epithelial Cells Few /LPF Urine Bacteria Few /HPF Sodium Level 139 mmol/L Potassium Level 4.2 mmol/L Chloride Level 101 mmol/L Carbon Dioxide Level 30 mmol/L Anion Gap 8 Blood Urea Nitrogen 12 mg/dL Creatinine 0.7 mg/dL Estimated GFR (Cockcroft-Gault) 81.8 BUN/Creatinine Ratio 17 Glucose Level 122 mg/dL Calcium Level 9.4 mg/dL Total Bilirubin 0.6 mg/dL Aspartate Amino Transf (AST/SGOT) 16 U/L Alanine Aminotransferase (ALT/SGPT) 21 U/L Alkaline Phosphatase 81 U/L Troponin I Quantitative < 0.017 ng/mL Total Protein 7.3 g/dL Albumin 3.5 g/dL Albumin/Globulin Ratio 0.9 Current Medications Medications (Trade) Dose Ordered Sig/Janett Route PRN Reason Start Time Stop Time Status Last Admin Dose Admin Sodium Chloride 1,000 ml @ 1,000 mls/hr Q1H IV 03/31/21 19:45 03/31/21 20:44 DC 03/31/21 20:00 Fentanyl Citrate (Fentanyl 2ml Vial) 50 mcg 1X ONCE IVP 03/31/21 19:45 03/31/21 19:46 DC 03/31/21 20:00 Ondansetron HCl (Zofran) 4 mg 1X ONCE IVP 03/31/21 20:00 03/31/21 20:03 DC 03/31/21 20:38 Vital Signs: Vital Signs Date Time Temp Pulse Resp B/P (MAP) Pulse Ox O2 Delivery O2 Flow Rate FiO2 03/31/21 20:03 73 18 85/50 (62) 92 Room Air (CLARKE CHANG CNC MILL OPERATOR) EKG: EKG: EKG performed by ER staff at 194 shows sinus rhythm with a rate of 74, QTC of 371, no STEMI read by Dr. Dudley 1945. [] (CLARKE CHANG CNC MILL OPERATOR) Radiology/Procedures: Radiology/Procedures: []PROCEDURE: CT ABDOMEN PELVIS WO CONTRAST Exam: CT of abdomen and pelvis without contrast INDICATION: Right flank pain, history of stone TECHNIQUE: Sequential axial images through the abdomen and pelvis obtained without IV contrast. Sagittal and coronal reformatted images were reconstructed from the axial data and reviewed. Exposure: One or more of the following in the visualized dose reduction techniques were utilized for this examination: 1. Automated exposure control 2. Adjustment of the MA and/or KV according to patient size 3. Use of iterative of reconstructive technique Comparisons: 11/21/2017 FINDINGS: Heart size is normal. No pericardial effusion. Visualized lung bases are clear. No pleural effusion. Evaluation solid organs limited secondary to noncontrast technique. Liver, spleen, pancreas and adrenals are unremarkable. Gallbladder is surgically absent. No perinephric inflammation or hydronephrosis. No renal or ureteral calculi are identified. Bladder is decompressed not well evaluated. Uterus is absent. No abnormal adnexal mass. Diverticulosis noted at the sigmoid colon without evidence of acute dive rticulitis. Appendix is nonidentified. No free intra-abdominal air or fluid. No obstruction. Abdominal aorta has a normal course and caliber. No enlarged intra-abdominal lymph nodes are identified. No suspicious osseous lesions or acute fractures. IMPRESSION: 1. No renal or ureteral calculi. No evidence for obstructive uropathy. 2. Diverticulosis without evidence of acute diverticulitis. Electronically signed by: Khloe More MD (03/31/2021 9:08 PM) [facility] DICTATED AND SIGNED BY: KHLOE MORE MD DATE: 03/31/212058 CC: CLARKE CHANG APRN; LAURYN MCCANN ~MTH0 0 (CLARKE CHANG APRN) Heart Score: C/O Chest Pain: N/A Risk Factors: Risk Factors: DM, Current or recent (<one month) smoker, HTN, HLP, family history of CAD, obesity. Risk Scores: Score 0 - 3: 2.5% MACE over next 6 weeks - Discharge Home Score 4 - 6: 20.3% MACE over next 6 weeks - Admit for Clinical Observation Score 7 - 10: 72.7% MACE over next 6 weeks - Early Invasive Strategies (CLARKE CHANG APRN) Course & Med Decision Making: Course & Med Decision Making Pertinent Labs and Imaging studies reviewed. (See chart for details) [] Patient is a 75-year-old female being seen in the ER for right flank pain with body aches. Work-up in the ER consisted of blood work, urinalysis, EKG. Patient treated with fluids, Zofran and pain medication. Work-up in the ER is unremarkable. Patient CT scan of abdomen and pelvis were negative for any acute findings, negative for any osseous findings. Patient reports improvement in her symptoms following treatment in the emergency department. Patient advised to increase fluids. She is advised to take Tylenol and ibuprofen for her pain and continue taking her muscle relaxers as prescribed. She is requesting some pain medication for home. Allergy to codeine. She will also be discharged home with a steroid taper to treat her back pain. I discussed with patient all findings and diagnostic testing as well as the need to follow-up with PCP for further evaluation and treatment or return to the ER if any new or worsening symptoms. Strict return precautions were also discussed at length. Patient voiced understanding and agreement with the plan. Patient is hemodynamically stable at the time of disposition. (CLARKE CHANG APRN) Jodyon Disclaimer: Nino Disclaimer: This electronic medical record was generated, in whole or in part, using a voice recognition dictation system. (CLARKE CHANG APRN) Departure Departure: Impression: Primary Impression: Flank pain Disposition: HOME / SELF CARE / HOMELESS Condition: GOOD Referrals: LAURYN MCCANN (PCP) Patient Instructions: Back Pain, Adult, Flank Pain Additional Instructions: You were seen in the emergency department for back pain. Your work-up in the ER was unremarkable. Continue taking ibuprofen and Flexeril as directed. You are being discharged home with a steroid taper. Please take this as directed. Increase your fluids at home. Follow-up with your primary care provider tomorrow regarding your ER visit. Return to the emergency department if you develop worsening of your pain, loss of bowel or bladder, inability to bear weight or ambulate, numbness or tingling in your groin or down your extremities, pain with urination, blood in your urine, intractable nausea or vomiting, abdominal pain, high fevers refractory to treatment or any new or worsening concerns. EMERGENCY DEPARTMENT GENERAL DISCHARGE INSTRUCTIONS Thank you for coming to [facility] (ED) today and trusting us with you care. We trust that you had a positivie experience in our Emergency Department. If you wish to speak to the department management, you may call the director at [phone]. YOUR FOLLOW UP INSTRUCTIONS ARE FOLLOWS: 1. Do you have a private Doctor? If you do not have a private doctor, please ask for a resource list of physicians or clinics that may be able to assist you with follow up care. 2. The Emergency Physician has interpreted your x-rays. The X-Ray specialist will also review them. If there is a change in the findings, you will be notified in 48 hours when at all possible. 3. A lab test or culture has been done, your results will be reviewed and you will be notified if you need a change in treatment. ADDITIONAL INSTRUCTIONS AND INFORMATION: 1. Your care today has been supervised by a physician who is specially trained in emergency care. Many problems require more than one evaluation for a complete diagnosis and treatment. We recommend that you schedule your follow up appointment as recomm ended to ensure complete treatment of you illness or injury. If you are unable to obtain follow up care and continue to have a problem, or if your condition worsens, we recommend that you return to the ED. 2. We are not able to safely determine your condition over the phone nor are we able to give sound medical advice over the phone. For these safety reasons, if you call for medical advice we will ask you to come to the ED for further evaluation. 3. If you have any questions regarding these discharge instructions please call the ED at [phone]. SAFETY INFORMATION: In the interest of safety, wellness, and injury prevention; we encourage you to wear your sealbelt, if you smoke; quite smoking, and we encourage family to use a protective helmet for bicycling and other sporting events that present an increased risk for head injury. IF YOUR SYMPTOMS WORSEN OR NEW SYMPTOMS DEVELOP, OR YOU HAVE CONCERNS ABOUT YOUR CONDITION; OR IF YOUR CONDITION WORSENS WHILE YOU ARE WAITING FOR YOUR FOLLOW UP APPOINTMENT; EITHER CONTACT YOUR PRIMARY CARE DOCTOR, THE PHYSICIAN WHOSE NAME AND NUMBER YOU WERE GIVEN, OR RETURN TO THE ED IMMEDIATELY. Scripts Prednisone (PREDNISONE) 10 Mg Tablet 10 MG PO UD for PREDNISONE TAPER, #21 TAB 0 Refills take 6 tablets day 1, 5 tablets day 2, 4 tablets day 3, 3 tablets day 4, 2 tablets day 5, 1 tablet day 6. Prov: CLARKE CHANG APRN 03/31/21 Attending Signature Attending Signature I have reviewed the PA/CUSTOM FRAMING SPECIALIST's note and plan of care. I was available for consultation as needed during the patient's visit in the emergency department. I agree with the clinical impression, plan, and disposition. (LEONOR PINZON DO) CLARKE CHANG APRN Mar 31, 2021 20:08 LEONOR PINZON DO Apr 01, 2021 01:42
[2021-03-31 20:25] LABS: CALCIUM 9.4 mg/dL (8.5-10.1); CREATININE 0.7 mg/dL (0.6-1.0); GFR 81.8; POTASSIUM 4.2 mmol/L (3.5-5.1)
[2021-03-31 20:32] LABS: ALBUMIN 3.5 g/dL (3.4-5.0); ALBUMIN/GLOBULIN RATIO 0.9 (1.0-1.7); TOTAL BILIRUBIN 0.6 mg/dL (0.2-1.0); TOTAL PROTEIN 7.3 g/dL (6.4-8.2)
[2021-03-31 20:35] LABS: BILIRUBIN,URINE SMALL (NEG); CLARITY,URINE CLEAR; COLOR,URINE YELLOW; GLUCOSE,URINE NEG (NEG)
[2021-03-31 20:36] LABS: BACTERIA,URINE FEW /HPF (0-FEW); NITRITE,URINE NEG (NEG); RBC,URINE 0 /HPF (0-2); SQUAMOUS EPITHELIAL CELL,UR FEW /LPF; WBC,URINE 0 /HPF (0-4)
--- NOTE | 2021-03-31 21:11 | RAD ---
Exam: CT of abdomen and pelvis without contrast INDICATION: Right flank pain, history of stone TECHNIQUE: Sequential axial images through the abdomen and pelvis obtained without IV contrast. Sagit ismael and coronal reformatted images were reconstructed from the axial data and reviewed. Exposure: One or more of the following in the visualized dose reduction techniques were utilized for this examination: 1. Automated exposure control 2. Adjustment of the MA and/or KV according to patient size 3. Use of iterative of reconstructive technique Comparisons: 11/21/2017 FINDINGS: Heart size is normal. No pericardial effusion. Visualized lung bases are clear. No pleural effusion. Evaluation solid organs limited secondary to noncontrast technique. Liver, spleen, pancreas and adrenals are unremarkable. Gallbladder is surgically absent. No perinephric inflammation or hydronephrosis. No renal or ureteral calculi are identified. Bladder is decompressed not well evaluated. Uterus is absent. No abnormal adnexal mass. Diverticulosis noted at the sigmoid colon without evidence of acute diverticulitis. Appendix is nonid entified. No free intra-abdominal air or fluid. No obstruction. Abdominal aorta has a normal course and caliber. No enlarged intra-abdominal lymph nodes are identified. No suspicious osseous lesions or acute fractures. IMPRESSION: 1. No renal or ureteral calculi. No evidence for obstructive uropathy. 2. Diverticulosis without evidence of acute diverticulitis. Electronically signed by: Khloe Stubbs MD (03/31/2021 9:08 PM) [facility]
[2021-03-31] MEDS ORDERED: PRED-220 PO (21:25)
--- NOTE | 2021-03-31 21:26 | EKG ---
[address] [address] Test Date: 2021-03-31 Test Time: 19:41:09 Pat Name: AINSLEY VELASCO Department: Room: Gender: F Steam Engineer: : 1945 Requested By: CLARKE CHANG Order Number: [id number] Reading MD: Timur Lindquist MD Measurements Intervals [place] Rate: 74 P: -90 NH: 128 QRS: -25 QRSD: 90 T: 97 QT: 330 QTc: 371 Interpretive Statements SR IVCD Electronically Signed On 04-06-2021 11:50:28 CDT by Timur Lindquist MD
[2021-03-31 21:40] VITALS: BP 110/63
== END 2021-03-31 21:49 | disposition home or self-care (01) ==
LOC: ER 19:11
DX: R10.9 Unspecified abdominal pain (principal); R11.0 Nausea; R35.0 Frequency of micturition; M19.90 Unspecified osteoarthritis, unspecified site; J44.9 Chronic obstructive pulmonary disease, unspecified; E03.9 Hypothyroidism, unspecified; Z90.49 Acquired absence of other specified parts of digestive tract; Z90.89 Acquired absence of other organs; Z90.710 Acquired absence of both cervix and uterus; Z88.8 Allergy status to other drugs, medicaments and biological substances; Z88.7 Allergy status to serum and vaccine; Z88.0 Allergy status to penicillin; Z88.5 Allergy status to narcotic agent
CPT/HCPCS: 36415; 74176; 80053; 81001; 84484; 85025; 93005; 96361; 96374; 96375; 99285; J2405; J3010; J7030